=== PATIENT | female | born 1970 | race Caucasian/White ===

== ENCOUNTER 2024-05-15 16:50 | Emergency (ER) | payer OTHER ==
[2024-05-15] MEDS ORDERED: Ketorolac Tromethamine 30 MG (1 mL) VIAL ONE (17:13)
[2024-05-15] MEDS ORDERED: Methocarbamol 500 MG TAB ONE ×2 (17:13→17:24)
== END 2024-05-15 18:11 | disposition home or self-care (01) ==
LOC: NAV ERS 16:50
DX: R07.81 Pleurodynia (principal); E11.9 Type 2 diabetes mellitus without complications
CPT/HCPCS: 96372; 99283; J1885